=== PATIENT | female | born 1940 | race Caucasian/White ===

== ENCOUNTER → 2024-05-14 15:24 | Outpatient (REF) | payer OTHER, SELFPAY | LOC: HWWDC 15:24 | PROVIDERS: ATTENDING PHYSICIAN Family Medicine | DX: Z12.31 Encounter for screening mammogram for malignant neoplasm of breast (principal) | CPT/HCPCS: 77063; 77067 ==

== ENCOUNTER → 2025-07-08 11:55 | Outpatient (REF) | payer OTHER, SELFPAY | LOC: HWWDC 11:55 | PROVIDERS: ATTENDING PHYSICIAN Family Medicine | DX: Z12.31 Encounter for screening mammogram for malignant neoplasm of breast (principal) | CPT/HCPCS: 77063; 77067 ==